=== PATIENT | female | born 1995 | race Two or more races ===

== ENCOUNTER 2025-04-20 06:28 | Emergency (ER) | payer MEDICAID, OTHER ==
[~2025-04-20] VITALS: Ht 160 cm; Wt 93.3 kg
--- NOTE | 2025-04-20 06:59 | ED.PDOC ---
GI ASSESSMENT HPI Comments 30 year old female presents to the ED with a chief complaint of abdominal pain onset last night around 21:00. Patient states she began experiencing abdominal pain, epigastric region, as well as nausea/vomiting since last night around 21:00. Patient noticed pain worsened this morning, also began experiencing hematemesis. She has experienced similar symptoms in the past, was diagnosed with hiatal hernia. Denies fever, chills,diarrhea, dizziness, headache, melena, blood in stool, dysuria. No other symptoms or modifying factors present at this time. Chief Complaint: Abdominal Pain Time Seen by MD: 06:55 Reviewed Notes: Medications, Allergies Allergies: Coded Allergies: NO KNOWN ALLERGIES (Unverified , 04/20/25) Information Source: Patient Mode of Arrival: Ambulatory Timing: Hours Duration: Since onset Prehospital treatment: None Quality: Sharp Vomitus: Bloody Stool: Loose Severity: Moderate Recent: None Recent Hx of: None Pain Location: Epigastric Modifying Factors: Nothing Associated sign and symptoms: Nausea, Vomiting, Hematemesis, Abdominal Pain Past Medical History PAST MEDICAL HISTORY: Denies Surgical History: Denies all surgeries TAPER AND FLOATER History: No Pertinent TAPER AND FLOATER History Family History Family History: Reviewed,noncontributory to illness, No family hx of Cancer, No family hx of DM, No family hx of Heart marcia, No family hx of HTN, No family hx of Kidney marcia, No family hx of Liver marcia, No family hx of Lung marcia, No family hx of Stroke Social History Smoker: Non-Smoker Alcohol: Denies ETOH Use Drugs: Denies Drug Use Lives In: Home Constitutional: denies: chills, diaphoresis, fatigue, fever, malaise, sweats, weakness, others EENTM: denies: blurred vision, double vision, ear bleeding, ear discharge, ear drainage, ear pain, ear ringing, eye pain, eye redness, hearing loss, mouth pain, mouth swelling, nasal discharge, nose bleeding, nose congestion, nose pain, photophobia, tearing, throat pain, throat swelling, voice changes, others Respiratory: denies: cough, hemoptysis, orthopnea, SOB at rest, shortness of breath, SOB with excertion, stridor, wheezing, others Cardiovascular: denies: chest pain, dizzy spells, diaphoresis, Dyspnea on exertion, edema, irregular heart beat, left arm pain, lightheadedness, palpitations, PND, syncope, others Gastrointestinal: reports: abdominal pain, hematemesis, nausea, vomiting; denies: abdomen distended, blood streaked bowels, constipated, diarrhea, dysphagia, difficulty swallowing, melena, poor appetite, poor fluid intake, rectal bleeding, rectal pain, others Genitourinary: denies: abnormal vagina bleeding, burning, dyspareunia, dysuria, flank pain, frequency, hematuria, incontinence, pain, , vagina discharge, urgency, others Neurological: denies: dizziness, fainting, headache, left sided numbness, left sided weakness, numbness, paresthesia, pre-existing deficit, right sided numbness, right sided weakness, seizure, speech problems, tingling, tremors, weakness, others Musculoskeletal: denies: back pain, gout, joint pain, joint swelling, muscle pain, muscle stiffness, neck pain, others Integumetry: denies: bruises, change in color, change in hair/nails, dryness, laceration, lesions, lumps, rash, wounds, others Allergic/Immunocompromised: denies: Difficulty Healing, Frequent Infections, Hives, Itching, others Hematologic/Lymphatic: denies: anemia, blood clots, easy bleeding, easy b ruising, swollen glands, others Endocrine: denies: excessive hunger, excessive sweating, excessive thirst, excessive urination, flushing, intolerance to cold, intolerance to heat, unexplained weight gain, unexplained weight loss, others Psychiatric: denies: anxiety, bipolar disorder, depression, hopeless, panic disorder, schizophrenia, sleepless, suicidal, others All Other Systems: Reviewed and Negative Physical Exam General Appearance: Normal, Other (appears uncomfortable) HEENT: Normal ENT Inspection, Pharynx Normal, TMs Normal Neck: Full Range of Motion, Non-Tender, Normal, Normal Inspection Respiratory: Chest Non-Tender, Lungs Clear, No Accessory Muscle Use, No Respiratory Distress, Normal Breath Sounds Cardiovascular: No Edema, No JVD, No Murmur, No Gallop, Normal Peripheral Pulses, Regular Rate/Rhythm Breast Exam: Deferred Gastrointestinal: No Organomegaly, Non Tender, No Pulsatile Mass, Normal Bowel Sounds, Soft Genitalia: Deferred Pelvic: Deferred Rectal: Deferred Extremities: No calf tenderness, Normal capillary refill, Normal inspection, Normal range of motion, Non-tender, No pedal edema Musculoskeletal : Apperance: Normal Neurologic: Alert, machine pan greaser II-XII nml as Tested, No Motor Deficits, Normal Affect, Normal Mood, No Sensory Deficits Cerebellar Function: Normal Reflexes: Normal Skin: Dry, Normal Color, Warm Lymphatic: No Adenopathy Was a procedure done? Was a procedure done?: No GI differential Dx Differential Diagnosis: Gastritis/PUD, Gastroenteritis, Hernia, Dehydration, Bacterial, Viral X-Ray, Labs, Meds, VS Vital Signs Date Time Temp Pulse Resp B/P (MAP) Pulse Ox O2 Delivery O2 Flow Rate FiO2 04/20/25 07:35 93 17 98 Room Air 04/20/25 07:35 97.7 93 17 123/75 (91) 98 97.7 04/20/25 07:34 86 20 118/69 04/20/25 06:33 97.6 86 20 118/69 99 97.6 Lab Test 04/20/25 07:12 04/20/25 07:08 Range/Units Urine Color Colorless Yellow Urine Clarity Clear Clear Urine pH 6.5 5.0-9.0 Urine Specific [place] 1.006 1.001-1.035 Urine Protein 1+ H Negative Urine Ketones Negative Negative Urine Blood 3+ H Negative /uL Urine Nitrite Negative Negative Urine Bilirubin Negative Negative Urine Urobilinogen Normal Negative mg/dL Urine Leukocyte Esterase Trace Negative /uL Urine RBC 30 0 - 4 /hpf Urine Microscopic WBC 5 0-5 /HPF Urine Squamous Epithelial Cells Few <5 /hpf Urine Bacteria Few H None Seen /hpf Urine Glucose Normal Normal mg/dL White Blood Count 7.2 4.4-10.8 10^3/uL Red Blood Count 4.92 4.0-5.20 10^6/uL Hemoglobin 14.6 12.2-16.2 g/dL Hematocrit 42.9 36.0-46.0 % Mean Corpuscular Volume 87.3 80.0-100.0 fL Mean Corpuscular Hemoglobin 29.6 28.0-32.0 pg Mean Corpuscular Hemoglobin Concent 33.9 32.0-36.0 g/dL Red Cell Distribution Width 12.7 11.8-14.3 % Platelet Count 203 140-450 10^3/uL Mean Platelet Volume 9.1 6.9-10.8 fL Neutrophils (%) (Auto) 63.4 37.0-80.0 % Lymphocytes (%) (Auto) 28.5 10.0-50.0 % Monocytes (%) (Auto) 6.4 0.0-12.0 % Eosinophils (%) (Auto) 0.9 0.0-7.0 % Basophils (%) (Auto) 0.8 0.0-2.0 % Neutrophils # (Auto) 4.5 1.6-8.6 10 ^3/uL Lymphocytes # (Auto) 2.0 0.4-5.4 10 ^3/uL Monocytes # (Auto) 0.5 0-1.3 10 ^3/uL Eosinophils # (Auto) 0.1 0-0.8 10 ^3/uL Basophils # (Auto) 0.1 0-0.2 10 ^3/uL Nucleated Red Blood Cells 0.1 % Sodium Level 143 136-145 mmol/L Potassium Level 4.0 3.5-5.1 mmol/L Chloride Level 107 98-107 mmol/L Carbon Dioxide Level 22 20-31 mmol/L Anion Gap 14 5-15 Blood Urea Nitrogen 11 9-23 mg/dL Creatinine 0.78 0.550-1.02 mg/dL Glomerular Filtration Rate Calc 106 >90 mL/min BUN/Creatinine Ratio 14.1 10.0-20.0 Serum Glucose 91 74-106 mg/dL Calcium Level 9.8 8.7-10.4 mg/dL Total Bilirubin 0.8 0.2-1.0 mg/dL Aspartate Amino Transferase (AST) 21 13-40 U/L Alanine Aminotransferase (ALT) 13 7-40 U/L Alkaline Phosphatase 103 46-116 U/L Total Protein 7.7 5.7-8.2 g/dL Albumin 4.8 3.2-4.8 g/dL Lipase 35 12-53 U/L Current Medications Medications (Trade) Dose Ordered Sig/Brian Route Start Time Stop Time Status Last Admin Sodium Chloride 1,000 ml @ 1,000 mls/hr Q1H ONCE IV 04/20/25 07:00 04/20/25 07:59 OK 04/20/25 07:34 Pantoprazole Sodium (Protonix) 40 mg ONCE ONCE IV 04/20/25 07:00 04/20/25 07:01 DC 04/20/25 07:33 Ondansetron HCl (Zofran) 4 mg ONCE ONCE IV 04/20/25 07:00 04/20/25 07:01 DC 04/20/25 07:33 Morphine Sulfate 4 mg ONCE ONCE IV 04/20/25 07:00 04/20/25 07:01 DC 04/20/25 07:[address] [address] Ph: [phone] DIAGNOSTIC IMAGING Diagnostic Imaging Report : [id number] Signed PATIENT: ZUNILDA CEDILLOACCT: [id number] UNIT: [id number] : 1995 LOC: ER ROOM / BED: / AGE / SEX: 30 / F ADM STATUS: REG ER SERVICE 4 ORDERING PHYSICIAN: YADY ANDRES MD PROCEDURE(s): CXRP - CHEST PORTABLE REASON: epigastric pain ORDER NUMBER(s): [id number], ACCESSION NUMBER(s): [id number] CHEST PORTABLE, HISTORY: epigastric pain COMPARISON: None None TECHNICAL DATA: 1 view of the chest was obtained. FINDINGS: Lines and tubes: None Cardiomediastinal silhouette: normal Pulmonary vasculature: normal Lung expansion: normal Lung airspace: normal Lung interstitium: normal Pleura: normal Pneumothorax: no Bones: Unremarkable Other: no IMPRESSION: No acute intrathoracic abnormality. ATED BY: DMITRIY REYES MD DICTATED DATE/TIME: 04/20/25838 SIGNED BY: DMITRIY REYES MD SIGNED DATE/TIME: 04/20/25838 CC: Time of 1ST Reevaluation: 07:25 Reevaluation 1ST: Unchanged Patient Education/Counseling: Diagnosis, Treatment, Prognosis Family Education/Counseling: No Family Present SEPSIS Sepsis Screen Date sepsis recognized/suspect: Apr 20, 2025 Time Sepsis recognized/suspect: 0636 Recent Procedure: No On Antibiotic Therapy: No Respiratory Rate >20: No Heart Rate >90: No Temp<36 C (96.8 F) or >38.3 C: No SBP <90 or MAP <65 mmHG: No New Acute Mental Status Change: No Is the patient on CPAP, BIPAP,: No Physician Orders Chest Portable (04/20/25 06:55) NS (04/20/25 09:45) Vital Signs Date Time Temp Pulse Resp B/P (MAP) Pulse Ox O2 Delivery O2 Flow Rate FiO2 04/20/25 07:35 93 17 98 Room Air 04/20/25 07:35 97.7 93 17 123/75 (91) 98 97.7 04/20/25 07:34 86 20 118/69 04/20/25 06:33 97.6 86 20 118/69 99 97.6 Laboratory Tests Test 04/20/25 07:08 White Blood Count 7.2 10^3/uL (4.4-10.8) Medications Medications Dose Ordered Sig/Brian Route Start Time Stop Time Status Last Admin Dose Admin Morphine Sulfate 4 mg ONCE ONCE IV 04/20/25 07:00 04/20/25 07:01 DC 04/20/25 07:34 Ondansetron HCl 4 mg ONCE ONCE IV 04/20/25 07:00 04/20/25 07:01 DC 04/20/25 07:33 Pantoprazole Sodium 40 mg ONCE ONCE IV 04/20/25 07:00 04/20/25 07:01 DC 04/20/25 07:33 Sodium Chloride 1,000 ml @ 1,000 mls/hr Q1H ONCE IV 04/20/25 07:00 04/20/25 07:59 DC 04/20/25 07:34 Departure 1 Departure Time of Disposition: 09:33 (Patient likely with a viral gastroenteritis. Patient's labs are benign. Chest x-ray is benign. Patient received IV fluids pain medicine antiemetics. Patient is feeling significantly better. We will discharge patient home) Impression: Primary Impression: Gastroenteritis Disposition: HOME / SELF CARE / HOMELESS Condition: Stable Additional Instructions: DISCHARGE INSTRUCTIONS Diagnosis: Viral Gastroenteritis ("Stomach Flu") Your exam and lab results were reassuring and did not show signs of a serious bacterial infection or severe dehydration. This is likely a viral infection that needs to run its course. HOME CARE INSTRUCTIONS 1. Hydration (Most Important): - Your goal is to prevent dehydration. Drink clear liquids in small amounts frequently. - Good options: Water, Pedialyte, Gatorade (diluted with water), jazmín deb, or broth. - Avoid: Alcohol, caffeine, and dairy products until you are feeling better. 2. Diet: - Start with a clear liquid diet. - Once your nausea settles, slowly advance to bland foods (the "BRAT" diet: Bananas, Rice, Applesauce, [place]). - Avoid spicy, greasy, or heavy meals for the next few days. 3. Medications: - You may take Tylenol (Acetaminophen) for fevers or body aches. - Avoid NSAIDs (Motrin/Advil/Ibuprofen) if you are having stomach pain, as these can irritate the stomach lining. - If you were prescribed anti-nausea medication (Zofran/Ondansetron), take it exactly as directed. 4. Hygiene: - Viral gastroenteritis is very contagious. Wash your hands frequently with soap and water, especially after using the restroom and before eating. RETURN TO THE EMERGENCY DEPARTMENT IF: - You cannot keep any liquids down for more than 12-24 hours. - You see blood or dark/tarry substance in your vomit or stool. - You have severe abdominal pain, especially in the lower right side. - You feel dizzy, lightheaded, or pass out (faint). - You have a high fever (over 103F) or a fever that does not go down with Tylenol. FOLLOW UP: - Follow up with your Primary Care Doctor if symptoms do not improve within 3-5 days. e-Prescriptions Ondansetron Odt 4MG Tab (ZOFRAN PO) 4 Mg Tb 4 MG PO QID PRN for 4 Days, #16 TAB ODT TAB-DISSOLVE IN MOUTH, THEN SWALLOW Prov: YADY ANDRES MD 04/20/25 Discharged With: Self Critical Care Note Critical Care Time?: No Stability Stability form required: No Heart Score Heart Score: Heart Score Response (Comments) Value History N/A 0 EKG N/A 0 Age N/A 0 Risk Factors N/A 0 Troponin N/A 0 Total 0 I personally scribed for YADY ANDRES MD ([email or web address]) on 04/20/25 at 06:59. Electronically submitted by Lillian Mchugh ([email or web address]). I personally scribed for YADY ANDRES MD ([email or web address]) on 04/20/25 at 08:45. Electronically submitted by Lillian Mchugh ([email or web address]). YADY ANDRES MD Apr 20, 2025 06:59
[2025-04-20 07:26] LABS: Hematocrit 42.9 % (36.0-46.0); Hemoglobin 14.6 g/dL (12.2-16.2); Mean Corpuscular Hemoglobin 29.6 pg (28.0-32.0); Mean Corpuscular Volume 87.3 fL (80.0-100.0); Nucleated Red Blood Cells % 0.1 %
[2025-04-20] MEDS: PANTOPRAZOLE 40 MG/10 ML VIAL INJ IV ONE (07:33)
[2025-04-20] MEDS: ONDANSETRON HCL 4 MG/2 ML VIAL IV ONE (07:33)
[2025-04-20] MEDS: SODIUM CHLORIDE 0.9% 1,000 ML IV ONE ×2 (07:34→09:36)
[2025-04-20] MEDS: MORPHINE SULFATE 4 MG/ML SYR/VIAL IV ONE (07:34)
[2025-04-20 07:41] LABS: Alanine Aminotransferase 13 U/L (7-40); Alkaline Phosphatase 103 U/L (46-116); Anion Gap 14 (5-15); BUN/Creatinine Ratio 14.1 (10.0-20.0); Bilirubin, Total 0.8 mg/dL (0.2-1.0); Blood Urea Nitrogen 11 mg/dL (9-23); Calcium 9.8 mg/dL (8.7-10.4); Carbon Dioxide 22 mmol/L (20-31); Glucose 91 mg/dL (74-106); Lipase 35 U/L (12-53); Potassium 4.0 mmol/L (3.5-5.1); Sodium 143 mmol/L (136-145); Total Protein 7.7 g/dL (5.7-8.2)
[2025-04-20 07:46] LABS: Urine Protein, UAD 1+ (Negative)
[2025-04-20 07:51] LABS: Albumin 4.8 g/dL (3.2-4.8); Chloride 107 mmol/L (98-107)
--- NOTE | 2025-04-20 08:41 | DVH ---
XY CHEST PORTABLE, HISTORY: epigastric pain COMPARISON: None None TECHNICAL DATA: 1 view of the chest was obtained. FINDINGS: Lines and tubes: None Cardiomediastinal silhouette: normal Pulmonary vasculature: normal Lung expansion: normal Lung airspace: normal Lung interstitium: normal Pleura: normal Pneumothorax: no Bones: Unremarkable Other: no IMPRESSION: No acute intrathoracic abnormality.
[2025-04-20] MEDS ORDERED: ZOFR4T PO (09:34)
[2025-04-20 10:05] VITALS: BP 107/72; PULSE 69; RESP 15; TEMP 98.1; O2SAT 99
--- NOTE | 2025-04-22 13:54 | ECG ---
[facility] Test Date: 2025-04-20 Test Time: 06:42:48 Pat Name: ZUNILDA CEDILLO Department: ED Room: Gender: F Press Tender: VENTURA : 1995 Requested By: YADY ANDRES Order Number: [id number] Reading MD: Denis Goldberg Measurements Intervals [place] Rate: 81 P: 18 WI: 174 QRS: 51 QRSD: 87 T: 25 QT: 333 QTc: 387 Interpretive Statements Sinus rhythm Electronically Signed On 04-23-2025 19:20:57 PST by Denis Goldberg Please click the below link to view image of tracing.
== END 2025-04-20 10:49 | disposition home or self-care (01) ==
LOC: ER 06:28
DX: K52.9 Noninfective gastroenteritis and colitis, unspecified (principal)
CPT/HCPCS: 36415; 71045; 80053; 81001; 83690; 85025; 96361; 96374; 96375; 99284; J2270; J2405; J2470; J7030; 93005